=== PATIENT | female | born 1965 | race Caucasian/White ===

== ENCOUNTER 2022-09-09 13:46 | Outpatient (REF) | payer OTHER, SELFPAY ==
--- NOTE | ~2022-09-09 | XR_ITS ---
EXAMINATION: XR KNEE, RIGHT CLINICAL INFORMATION: Pain in the right knee COMPARISON: None available. TECHNIQUE: Four views of the right knee. FINDINGS: No acute fracture or dislocation of the right knee. No joint effusion. There is mild lateral compartment and moderate patellofemoral joint osteoarthritis. Soft tissue structures are within normal limits. XR/XR knee RT 3V IMPRESSION: Mild lateral compartment and moderate patellofemoral joint osteoarthritis.
--- NOTE | ~2022-09-09 | XR_ITS ---
EXAMINATION: XR LUMBOSACRAL SPINE WITH OBLIQUES CLINICAL INFORMATION: Spondylosis with myelopathy COMPARISON: None available. TECHNIQUE: AP, both oblique, and lateral views of the lumbar spine. Lateral view of the lumbosacral junction. FINDINGS: There are 5 nonrib-bearing lumbar vertebral bodies. On the right, there is moderate facet arthropathy at L4-L5. No significant spondylolisthesis of the lumbar spine. Vertebral body heights and intervertebral disc spaces are preserved.. No evidence of dynamic instability on flexion-extension views. XR/XR lumbar spine 6V w bending IMPRESSION: 1. Moderate right L4-L5 facet arthropathy. 2. No dynamic instability of the lumbar spine, spondylolisthesis, or acute fractures.
== END 2022-09-09 13:47 | disposition home or self-care (01) ==
LOC: HO.XRAY 13:46
PROVIDERS: PCP Nurse Practitioner Family; Visit Provider Nurse Practitioner Family
DX: M25.561 Pain in right knee (principal); M47.816 Spondylosis without myelopathy or radiculopathy, lumbar region; M54.16 Radiculopathy, lumbar region; M10.9 Gout, unspecified; M25.50 Pain in unspecified joint; G89.4 Chronic pain syndrome
CPT/HCPCS: 72114; 73562